=== PATIENT | male | born 1980 | race Two or more races ===

== ENCOUNTER 2023-05-11 17:22 | Emergency (ER) | payer OTHER ==
[~2023-05-11] VITALS: Ht 182.9 cm; Wt 86.2 kg
[2023-05-11] MEDS ORDERED: LIDOCAINE 1% INJ 50 ML MDV IJ ONE (18:00)
[2023-05-11] MEDS ORDERED: TDAP [DIPH/PERTUSSIS/TET] 0.5 ML VIAL IM ONE ×2 (18:00)
[2023-05-11] MEDS ORDERED: LIDOCAINE 2% 20 ML MDV ONE (18:00)
[2023-05-11] MEDS ORDERED: CEPH500C2 PO (19:31)
[2023-05-11] MEDS ORDERED: CEPH500T PO (19:32)
[2023-05-11 20:00] VITALS: BP 131/71; TEMP 98; O2SAT 98
== END 2023-05-11 20:01 | disposition home or self-care (01) ==
LOC: ER 17:33
DX: S61.212A Laceration without foreign body of right middle finger without damage to nail, initial encounter (principal); Z60.2 Problems related to living alone; W22.8XXA Striking against or struck by other objects, initial encounter; Y93.89 Activity, other specified; Y92.89 Other specified places as the place of occurrence of the external cause; Y99.8 Other external cause status
CPT/HCPCS: 12001; 90471; 90715; 99283; A6403; J3490